=== PATIENT | female | born 1950 | race Caucasian/White ===

== ENCOUNTER 2017-03-31 05:32 | Outpatient (CLI) | payer MEDICARE ==
[~2017-03-31] VITALS: Ht 160 cm; Wt 90.7 kg
[2017-03-31] MEDS ORDERED: CHOL500049 PO (11:20)
[2017-03-31] MEDS ORDERED: OMG1KC PO (11:20)
[2017-03-31] MEDS ORDERED: ASPI-586 PO (11:20)
[2017-03-31] MEDS ORDERED: NF-ESOM40C PO (11:20)
[2017-03-31] MEDS ORDERED: PRAV20TA3 PO (11:20)
[2017-03-31] MEDS ORDERED: METF1000 PO (11:20)
[2017-03-31] MEDS ORDERED: PRAM0.12 PO (11:20)
[2017-03-31] MEDS ORDERED: LEVO112T55 PO (11:20)
[2017-03-31] MEDS ORDERED: GLIP2.5T15 PO (11:20)
[2017-03-31] MEDS ORDERED: CETI10TA20 PO (11:20)
[2017-03-31] MEDS ORDERED: CYAN50008 PO (11:20)
== END 2017-03-31 12:10 ==
LOC: PREOP 05:32
PROVIDERS: ATTEND Urology
DX: Z01.818 Encounter for other preprocedural examination (principal); N81.10 Cystocele, unspecified; N39.46 Mixed incontinence; N32.81 Overactive bladder

== ENCOUNTER 2017-04-06 06:48 | Day surgery (SDC) | payer MEDICARE, OTHER ==
[~2017-04-06] VITALS: Ht 160 cm; Wt 90.7 kg
[~2017-04-06 06:48] MED LIST: ASPI-586 PO; CETI10TA20 PO; CHOL500049 PO; CYAN50008 PO; GLIP2.5T15 PO; LEVO112T55 PO; METF1000 PO; NF-ESOM40C PO; OMG1KC PO; PRAM0.12 PO; PRAV20TA3 PO
[2017-04-06 07:00] VITALS: BP 155/78
--- NOTE | 2017-04-06 07:03 | Progress Note-Pre Operative ---
Pre-Operative Progress Note H&P Reviewed The H&P was reviewed, patient examined and no changes noted. Date Seen by Provider: Apr 06, 2017 Time Seen by Provider: 07:03 Date H&P Reviewed: Apr 06, 2017 Time H&P Reviewed: 07:03 Pre-Operative Diagnosis: CYSTOCELE, INCONTINENCE, ISD, AND OAB HOLLY CAMPBELL MD Apr 06, 2017 7:03 am
[2017-04-06] MEDS ORDERED: ceFAZolin 1 GM/NS 50 ML IVPB IV ONE ×2 (07:30)
[2017-04-06] MEDS: LACTATED RINGERS 1,000 ML IV PRN ×2 (08:17→09:42)
[2017-04-06] MEDS ORDERED: FAMOTIDINE 20MG/2ML IV (PEPCID) ONE (08:54)
[2017-04-06] MEDS ORDERED: ROCURONIUM 50 MG/5 ML (ZEMURON) VIAL IV ONE (08:58)
[2017-04-06] MEDS ORDERED: LIDOCAINE JELLY 2% (XYLOCAINE) 5 ML TUBE ONE (08:58)
[2017-04-06] MEDS ORDERED: proPOfol 200 MG/20 ML (DIPRIVAN) VIAL IV ONE (08:58)
[2017-04-06] MEDS ORDERED: ONDANSETRON 4 MG/2 ML (SDV) Z0FRAN ONE (08:58)
[2017-04-06] MEDS ORDERED: LACTATED RINGERS 1,000 ML IV ONE (08:58)
[2017-04-06] MEDS ORDERED: LIDOCAINE PF 2% 5 ML (XYLOCAINE) VIAL ONE (08:58)
[2017-04-06] MEDS ORDERED: fentaNYL INJECTION 100 MCG/2 ML AMP ONE (08:59)
[2017-04-06] MEDS ORDERED: MIDAZOLAM 2 MG/2 ML (VERSED) VIAL ONE (08:59)
--- NOTE | 2017-04-06 09:03 | Progress Note-Post Operative ---
Post-Operative Progess Note Surgeon (s)/Zipper Slide Attacher (s) Surgeon HOLLY CAMPBELL MD Zipper Slide Attacher: N/A Pre-Operative Diagnosis CYSTOCELE, INCONTINENCE, ISD, AND OAB Post-Operative Diagnosis SAME Procedure & Operative Findings Date of Procedure 04/06/17 Procedure Performed/Findings ANTERIOR REPAIR, PVS, AND CYSTOSCOPY Anesthesia Type GENERAL Estimated Blood Loss Estimated blood loss (mL): LESS THAN 50cc Specimens/Packing Specimens Removed NONE TO PATH Packing: ESTRACE VAGINAL PACK HOLLY CAMPBELL MD Apr 06, 2017 9:02 am
[2017-04-06] MEDS ORDERED: HYDROcodone/APAP 10 MG/325 MG (LORTAB) TAB PO PRN (09:15)
[2017-04-06] MEDS ORDERED: KETOROLAC 30 MG/ML VIAL IV PRN (09:15)
[2017-04-06] MEDS ORDERED: FAMOTIDINE 20MG/2ML IV (PEPCID) IV ONE (09:15)
[2017-04-06] MEDS ORDERED: SEVOFLURANE (ULTANE) 15 ML INHAL SOLN ONE ×4 (09:41→10:29)
[2017-04-06] MEDS ORDERED: LIDOCAINE/EPI 1%-1:200,000 (XYLOCAINE) 30 ML VIAL INJ ONE (10:15)
[2017-04-06] MEDS ORDERED: ONDANSETRON 4 MG/2 ML (SDV) Z0FRAN IVP PRN (10:30)
[2017-04-06] MEDS ORDERED: morphine INJ 10 MG/ML 1ML (SYR OR VIAL) IVP PRN (10:30)
[2017-04-06] MEDS ORDERED: MEPERIDINE (DEMEROL) INJ 50 MG/ML IVP PRN (10:30)
[2017-04-06] MEDS: LACTATED RINGERS 1,000 ML IV SCH ×2 (11:55→20:40)
[2017-04-06 15:15] VITALS: BP 171/91
[2017-04-06 20:43] VITALS: BP_SYST 159; BP_SYST 169; BP_DIAS 81
[2017-04-06] MEDS ORDERED: ESTRADIOL VAGINAL CREAM 42.5 GM (ESTRACE) VG ONE (21:00)
[2017-04-07 00:35] VITALS: BP 115/63
[2017-04-07 04:20] VITALS: BP 93/56
[2017-04-07] MEDS: LACTATED RINGERS 1,000 ML IV SCH (04:30)
--- NOTE | 2017-04-07 06:49 | Progress Note-Urology ---
Progress Note-Urology Progress Notes/Assess & Plan Progress/Assessment & Plan AFEBRILE, VSS, FEELS GREAT, TOV AND DECIDE ON D/C Final Diagnosis INCONTINENCE, OAB, ISD, CYSTOCELE HOLLY CAMPBELL MD Apr 07, 2017 06:49
[2017-04-07 08:48] VITALS: BP 148/69
[2017-04-07] MEDS ORDERED: LEVOFLOXACIN 250 MG/50 ML IVPB 50 ML IV SCH (09:03)
--- NOTE | 2017-04-07 11:22 | Anesthesia-General Post-Op ---
General Patient Condition Mental Status/LOC: Same as Preop Cardiovascular: Satisfactory Nausea/Vomiting: Present Respiratory: Satisfactory Pain: Controlled Complications: Absent Post Op Complications Complications None Follow Up Care/Instructions Patient Instructions None needed. Anesthesia/Patient Condition Patient Condition Patient is doing well, no complaints, stable vital signs, no apparent adverse anesthesia problems. No complications reported per nursing. Patient states she has been nauseated this morning. Spoke to nursing and she will request a script from surgeon for zofran po. LUCERO STEWART CRNA Apr 07, 2017 11:22
--- NOTE | 2017-04-07 11:41 | OPERATIVE REPORT ---
PROCEDURE PHYSICIAN: HOLLY CAMPBELL DATE OF PROCEDURE: PREOPERATIVE DIAGNOSIS: Cystocele, incontinence, overactive bladder and ISD. POSTOPERATIVE DIAGNOSIS: Cystocele, incontinence, overactive bladder and ISD. OPERATION PERFORMED: 1. Anterior repair. 2. Pubovaginal sling. 3. Cystoscopy. SURGEON: David. ANESTHESIA: General. COMPLICATIONS: None. PROCEDURE: Under satisfactory general anesthesia, the patient in extended lithotomy position, the abdomen, genitalia and thigh were prepped and draped in usual sterile fashion, Including a separate vaginal prep. A Kraft catheter was inserted and the bladder was drained. The anterior vaginal wall was infiltrated with lidocaine and epinephrine. A midline incision was made just a centimeter from the urethral meatus. The fascia was dissected off the mucosa and dissection was carried to the pubic arch. The fascia was approximated with interrupted 2-0 Vicryl giving good support to the bladder. I then passed the pubovaginal sling Solyx type using the described technique. The sling was sitting actually under the mid urethra with no tension or twist and passage of a curved hemostat easily between it and the underlying tissue. The Kraft catheter was removed. A cystoscopy was performed which showed the integrity of the bladder, ureteral orifices and urethra and no foreign body or sling visualized. The bladder was left half full and the cystoscope was removed. A manual Valsalva maneuver was negative. The cystoscope was removed. The catheter was reinserted draining clear fluid. The excess vaginal mucosa was sharply excised. The vaginal mucosa was approximated with 0 Vicryl Rapide type. Needle, sponge, and instruments counts were correct x2. Estimated blood loss was less than 50 mL. The patient tolerated the procedure and anesthesia well and was sent to recovery room in stable condition. Needle, sponge, and instruments counts correct x2. Job ID: [id number] Dictated Date: 04/06/2017 10:29:13 Otolaryngology Surgeon Date: 04/07/2017 11:31:09 / dary
[2017-04-07] MEDS ORDERED: CIPR-225 PO (13:34)
[2017-04-07] MEDS ORDERED: ONDA4TAB8 PO (13:34)
== END 2017-04-07 14:06 | disposition home or self-care (01) ==
LOC: SDC 06:48 → EDSTATUS 10:15 → WS 11:20 → SDC 04-07 14:06
PROVIDERS: ATTEND Urology
DX: N81.10 Cystocele, unspecified (principal); N39.46 Mixed incontinence; N32.81 Overactive bladder; N36.42 Intrinsic sphincter deficiency (ISD); E78.5 Hyperlipidemia, unspecified; E11.9 Type 2 diabetes mellitus without complications; Z87.891 Personal history of nicotine dependence; Z79.899 Other long term (current) drug therapy
CPT/HCPCS: 82962; 87081; 94664; 96361